=== PATIENT | female | born 1955 | race Caucasian/White ===

== ENCOUNTER → 2017-03-09 14:08 | Outpatient (CLI) | payer MEDICAID ==
[2012-09-07 16:40] VITALS: BMI 55.3
== END | disposition home or self-care (01) ==
LOC: D.US 14:08
DX: Z68.41 Body mass index [BMI] 40.0-44.9, adult (principal); N18.3 Chronic kidney disease, stage 3 (moderate); E11.22 Type 2 diabetes mellitus with diabetic chronic kidney disease

== ENCOUNTER → 2018-11-12 11:31 | Outpatient (CLI) | payer MEDICAID ==
[2012-09-07 16:40] VITALS: BMI 55.3
[2018-11-12 12:07] LABS: HEMATOCRIT 32.4 % (36.0-48.0); HEMOGLOBIN 10.8 g/dL (12-16); MCH 29.3 pg (26.0-34.0); MCHC 33.3 g/dL (31.0-37.0); MEAN PLATELET VOLUME 9.7 fL (7.4-10.4); RBC 3.68 10x6/uL (4.00-5.40); RDW 13.4 % (11.5-14.5); WBC 6.4 10x3/uL (4.8-10.8)
[2018-11-12 12:16] LABS: PLATELET COUNT 445 10x3/uL (130-400)
[2018-11-12 13:32] LABS: BASOPHILS 1 % (0-2); EOSINOPHILS 4 % (0-7); LYMPHOCYTES 49 % (15-50); MONOCYTES 5 % (2-11); NEUTROPHILS 40 % (40-80); PLATELET ESTIMATE INCREASED
[2018-11-12 14:43] LABS: ERYTHROCYTE SEDIMENTATION RATE 41 mm/hr (0-30)
== END | disposition home or self-care (01) ==
LOC: D.LAB 11:31
PROVIDERS: ATTEND Podiatrist Foot & Ankle Surgery
DX: M10.9 Gout, unspecified (principal)

== ENCOUNTER 2020-02-01 15:38 | Emergency (ER) | payer MEDICAID ==
[~2020-02-01] VITALS: Ht 144.8 cm; Wt 83.2 kg
[2020-02-01 15:51] VITALS: Ht 144.8 cm; Wt 83.2 kg
[2020-02-01 16:01] LABS: BASOPHILS 0.2 % (0-2); EOSINOPHILS 6.3 % (0-7); HEMATOCRIT 25.2 % (36.0-48.0); HEMOGLOBIN 7.8 g/dL (12-16); IMMATURE GRANULOCYTES 0.2 % (0-5); MCH 27.2 pg (26.0-34.0); MCV 87.8 fL (80.0-100.0); MEAN PLATELET VOLUME 9.4 fL (7.4-10.4); MONOCYTES 10.9 % (2-11); NEUTROPHILS 48.4 % (40-80); RBC 2.87 10x6/uL (4.00-5.40); RDW 15.8 % (11.5-14.5); WBC 12.3 10x3/uL (4.8-10.8)
[2020-02-01 16:05] LABS: PLATELET COUNT 917 10x3/uL (130-400)
[2020-02-01 16:10] LABS: CALCIUM 8.8 mg/dL (8.5-10.1); CREATININE - SERUM 1.4 mg/dL (0.6-1.3)
[2020-02-01 16:17] LABS: ALBUMIN 2.8 g/dL (3.4-5.0); BILIRUBIN - TOTAL 0.24 mg/dL (0.2-1.3); PROTEIN - SERUM 6.1 g/dL (6.4-8.2)
[2020-02-01 18:12] LABS: % SATURATION 9 % (15-55); IRON 38 ug/dl (35-150); TOTAL IRON BIND CAPACITY 415 ug/dl (260-445); UNSAT IRON BIND CAPACITY 377 ug/dl (150-375)
[2020-02-01 19:28] VITALS: BP 152/70
== END 2020-02-01 19:28 | disposition home or self-care (01) ==
LOC: D.ER 15:38
PROVIDERS: Family Medicine
DX: E11.649 Type 2 diabetes mellitus with hypoglycemia without coma (principal); I50.9 Heart failure, unspecified; J44.9 Chronic obstructive pulmonary disease, unspecified; D50.9 Iron deficiency anemia, unspecified; R53.1 Weakness; R41.82 Altered mental status, unspecified

== ENCOUNTER 2020-10-01 07:06 | Day surgery (SDC) | payer MEDICAID ==
[~2020-10-01] VITALS: Ht 144.8 cm; Wt 85.0 kg
[~2020-10-01 07:06] MED LIST: BASAGLAR K100 UNIT/1 SC; COREG6.25 MG PO; CYCLOBENZAPRINE10 MG PO; EFFEXOR XR75 MG PO; FENOFIBRATE160 MG PO; FUROSEMIDE20 MG PO; GABAPENTIN300 MG PO; GLUCOTROL 5 MG T5 MG PO; LIPITOR80 MG PO; LISINOPRIL2.5 MG PO; MOBIC7.5 MG PO; NAPROSYN500 MG PO; PROTONIX40 MG PO; VICTOZA0.6 MG/0.1 SQ; ZOFRAN4 MG PO; ZYLOPRIM100 MG PO
[2020-10-01 07:45] LABS: ALBUMIN 3.4 g/dL (3.4-5.0); ANION GAP 9.2 mmol/L (8-16); BILIRUBIN - TOTAL 0.41 mg/dL (0.2-1.3); CALCIUM 8.9 mg/dL (8.5-10.1); CARBON DIOXIDE 34.2 mmol/L (21.0-32.0); CREATININE - SERUM 1.7 mg/dL (0.6-1.3); POTASSIUM - SERUM 4.4 mmol/L (3.5-5.1); PROTEIN - SERUM 7.1 g/dL (6.4-8.2)
[2020-10-01 07:46] LABS: BASOPHILS 0.3 % (0-2); EOSINOPHILS 8.7 % (0-7); HEMATOCRIT 32.5 % (36.0-48.0); HEMOGLOBIN 10.6 g/dL (12-16); IMMATURE GRANULOCYTES 0.3 % (0-5); LYMPHOCYTE ABS# 3.14 10x3/uL (1.18-3.74); LYMPHOCYTES 46.2 % (15-50); MCH 28.4 pg (26.0-34.0); MCHC 32.6 g/dL (31.0-37.0); MCV 87.1 fL (80.0-100.0); MEAN PLATELET VOLUME 10.4 fL (7.4-10.4); MONOCYTES 10.9 % (2-11); NEUTROPHIL ABS# 2.29 10x3/uL (1.56-6.13); NEUTROPHILS 33.6 % (40-80); PLATELET COUNT 404 10x3/uL (130-400); RBC 3.73 10x6/uL (4.00-5.40); RDW 15.9 % (11.5-14.5); WBC 6.8 10x3/uL (4.8-10.8)
[2020-10-01 08:23] VITALS: BP 135/51; Ht 144.8 cm; Wt 85.0 kg
--- NOTE | 2020-10-01 10:15 | NUR ---
0940 IV DC'D. CATHETER TIP INTACT. NO BLEEDING AT SITE. [employer] DRESSING APPLIED. 0950 PT IS DRESSED AND READY FOR DISCHARGE HOME. REVIEWED DISCHARGE INSTRUCTIONS WITH PT WHO VOICES UNDERSTANDING OF THESE. SHE IS AWARE THAT HER PROCEDURE WAS NOT COMPLETED DUE TO NOT HAVING A GOOD CLEANOUT FROM [facility]. SHE UNDERSTANDS INSTRUCTIONS TO GET STARTED ON MIRALAX TO CORRECT CONSTIPATION ISSUES. 0911 PT'S CRYPTOGRAPHIC VULNERABILITY ANALYST IN PARKING LOT AND PT TAKEN TO HER CAR. CRYPTOGRAPHIC VULNERABILITY ANALYST DID NOT ANSWER THE MULTIPLE CALLS FROM HOSPITAL AND FROM PT'S CELL PHONE REQUESTING HIM TO COME TO MAIN ENTRANCE FOR PICKUP
--- NOTE | 2020-10-03 07:53 | OP ---
PATIENT NAME: SALUD UGALDE MEDICAL RECORD: [id number] :57 LOCATION:D.OPS ADMISSION DATE: SURGEON: DERIC TILLMAN DO DATE OF OPERATION: 10/01/2020 PROCEDURE: Colonoscopy. INDICATION FOR PROCEDURE: Change in bowel habits, constipation, generalized abdominal pain, nausea and vomiting. SCOPE: Olympus video pediatric colonoscope. MEDICATIONS: Propofol 300 mg IV per anesthesia. ESTIMATED BLOOD LOSS: None. COMPLICATIONS: None. FINDINGS: Informed consent was given. The patient was made comfortable with the above medication. After reaching an adequate level of sedation by slow IV push, the patient was placed on the left side. A digital rectal examination was performed and it was normal. The endoscope was advanced under direct visualization through the rectum to approximately the hepatic flexure. The procedure was terminated early due to an inadequate bowel prep to identify polyps. There were no polyps visualized up to that point. The mucosa had very limited visualization in the transverse colon and descending colon. The sigmoid colon and rectum could be visualized and there were no polyps. There were moderate diverticula without evidence of diverticulitis. Retroflexion was performed in the rectum with a normal appearing rectal wall being visualized. The endoscope was withdrawn from the patient. The patient tolerated the procedure well and there were no complications. IMPRESSION: 1. Moderate diverticulosis of the sigmoid colon. 2. Inadequate prep. PLAN AND RECOMMENDATIONS: 1. Discharge home when recovery parameters are met. 2. We will discuss a bowel regimen with the patient, which should include MiraLax one cap daily with or without stool softeners depending on results of MiraLax. The patient does have a history of gastroparesis, so fiber likely cannot be utilized as this will make her upper digestive symptoms worsen. 3. We will recommend a repeat colonoscopy at the patient's earliest convenience due to the inadequate prep encountered today. We will need to determine reasons for the inadequate prep today and may need a different procedure time with a split dose prep or a 2-day prep, pending reasons. TRANSINT:[id number] Voice Confirmation ID: [id number] DOCUMENT ID: [id number] OPERATIVE REPORT [id number] SALUD UGALDE DERIC TILLMAN DO at 0753 CC: [id number] DICTATION DATE: 10/01/20899 [employer] WORKER: 10/01/20 09 [facility] 10/01/20 [facility] [address] [place] [address]
== END 2020-10-01 09:59 | disposition home or self-care (01) ==
LOC: D.OPS 07:06
PROVIDERS: ATTEND Internal Medicine Gastroenterology
DX: R19.4 Change in bowel habit (principal); R11.2 Nausea with vomiting, unspecified; R10.84 Generalized abdominal pain; K57.30 Diverticulosis of large intestine without perforation or abscess without bleeding; K21.9 Gastro-esophageal reflux disease without esophagitis; K31.84 Gastroparesis